=== PATIENT | male | born 1935 | race Caucasian/White ===

== ENCOUNTER → 2019-04-05 | Outpatient (CLI) | payer MEDICARE ==
--- NOTE | 2019-04-07 09:49 | REP ---
MRI lumbar spine: 04/05/2019. New indication: Low back pain. Comparison: None. Technique: Multiplanar short and long TR sequences of the lumbar spine were obtained without IV Gadolinium. Findings: There is a grade 1 anterolisthesis of L4 on L5 secondary to facet arthrosis. Minimal anterolisthesis of L3 on L4 is present also secondary to facet arthrosis. Disc desiccation and disc space narrowing are present throughout with relative sparing of L1. Multilevel endplate degenerative signal changes are present. Chronic appearing Schmorl's nodes are noted within the inferior aspect of L2 and superior aspect of L3. The visualized cord is unremarkable. L1/L2: There is no focal disc herniation or significant spinal canal / neural foraminal narrowing. L2/L3: Diffuse disc bulge and mild bilateral facet arthrosis are present with mild spinal canal and neural foraminal narrowing. L3/L4: Diffuse disc bulge and significant bilateral facet arthropathy are present with severe left greater than right lateral recess narrowing. There is moderate to severe bilateral neural foraminal narrowing as well. L4/L5: There is a right lateral disc extrusion with 4 mm of cephalad migration superimposed on a diffuse uncovered/bulging disc. Significant bilateral facet arthropathy is present with severe bilateral recess narrowing. There is severe right greater than left neural foraminal narrowing. L5/S1: Diffuse disc and spur complex and bilateral facet arthropathy are present with moderate to severe bilateral recess narrowing. There is severe right and moderate to severe left neural foraminal narrowing. 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 Electronically Signed by Otoniel Timmons DO 04/07/2019 09:41 A
== END ==
LOC: M RAD 10:42
PROVIDERS: ATTEND Orthopaedic Surgery
DX: M43.16 Spondylolisthesis, lumbar region (principal)

== ENCOUNTER → 2019-05-20 | Outpatient (REF) | payer MEDICARE, OTHER ==
[2019-05-20 14:17] LABS: PLATELET COUNT, AUTOMATED 174 10^3/uL (150-450)
[2019-05-20 14:19] LABS: INR 1.09; PROTHROMBIN TIME 13.8 SECONDS (11.8-14.0)
[2019-05-20 14:20] LABS: PARTIAL THROMBOPLASTIN TIME 31.8 SECONDS (25.0-38.4)
== END ==
LOC: M LABDRWAD 12:39
PROVIDERS: ATTEND Physical Medicine & Rehabilitation
DX: Z01.812 Encounter for preprocedural laboratory examination (principal); M51.36 Other intervertebral disc degeneration, lumbar region

== ENCOUNTER → 2019-11-03 | Outpatient (CLI) | payer MEDICARE, OTHER, BC ==
[2019-11-03 11:58] LABS: PLATELET COUNT, AUTOMATED 144 10^3/uL (150-450)
[2019-11-03 12:08] LABS: INR 1.03; PROTHROMBIN TIME 13.2 SECONDS (11.8-14.0)
[2019-11-03 12:09] LABS: PARTIAL THROMBOPLASTIN TIME 28.3 SECONDS (25.0-38.4)
== END ==
LOC: M LAB 11:05
PROVIDERS: ATTEND Physical Medicine & Rehabilitation
DX: Z01.812 Encounter for preprocedural laboratory examination (principal); M47.27 Other spondylosis with radiculopathy, lumbosacral region

== ENCOUNTER → 2019-11-18 | Outpatient (CLI) | payer MEDICARE, OTHER, BC | LOC: M LABSMTC 10:04 | PROVIDERS: ATTEND Physical Medicine & Rehabilitation | DX: Z03.818 Encounter for observation for suspected exposure to other biological agents ruled out (principal); Z11.59 Encounter for screening for other viral diseases ==

== ENCOUNTER 2025-04-23 18:44 | Emergency (ER) | payer MEDICARE, OTHER, BC ==
[~2025-04-23] VITALS: Ht 170.2 cm; Wt 93.2 kg
[2025-04-23 18:54] VITALS: TEMP 97
[2025-04-23 19:16] LABS: BASO # 0.0 10^3/uL (0.0-0.2); BASO % 0.3 % (0.0-1.0); EOS # 0.3 10^3/uL (0.0-0.5); EOS % 4.5 % (0.0-3.0); LYMPH # 2.7 10^3/uL (1.5-5.0); LYMPH % 45.9 % (24.0-44.0); MONO # 0.6 10^3/uL (0.0-0.8); MONO % 10.1 % (2.0-8.0); NEUTROPHILS # 2.2 10^3/uL (1.5-8.5); NEUTROPHILS % 38.9 % (36.0-66.0); PLATELET COUNT, AUTOMATED 173 10^3/uL (150-450)
[2025-04-23 19:40] LABS: ETHYL ALCOHOL (ETHANOL) 0.112 % (0.000-0.010)
[2025-04-23 19:42] LABS: CALCIUM LEVEL 8.7 MG/DL (8.3-10.6); CARBON DIOXIDE LEVEL 19.0 MMOL/L (20-31); CHLORIDE LEVEL 100.0 MMOL/L (98-107); CREATININE FOR GFR 1.4 MG/DL (0.70-1.30); GLOMERULAR FILTRATION RATE 48.7 (>35); POTASSIUM SERUM 4.2 MMOL/L (3.5-5.1); SODIUM LEVEL 134.0 MMOL/L (136-145)
[2025-04-23 21:00] VITALS: BP 116/52
[2025-04-23 21:01] VITALS: O2SAT 95
[2025-04-23 21:09] VITALS: O2SAT 94
== END 2025-04-23 21:20 | disposition home or self-care (01) ==
LOC: M ED 18:44 → EDBD 18:44 → M ED 21:20
DX: F10.120 Alcohol abuse with intoxication, uncomplicated (principal); W10.8XXA Fall (on) (from) other stairs and steps, initial encounter; I10 Essential (primary) hypertension